=== PATIENT | male | born 1950 | race Caucasian/White ===

== ENCOUNTER 2020-04-22 10:28 | Emergency (ER) | payer MEDICARE ==
[~2020-04-22] VITALS: Ht 170.2 cm; Wt 63.6 kg
--- NOTE | 2020-04-22 11:23 | PHYS DOC ---
Past Medical History Past Medical History: No Pertinent History Past Surgical History: Other Additional Past Surgical Histo: CERVICAL Smoking Status: Never Smoker Alcohol Use: None General Adult EDM: Chief Complaint: COUGH HPI: HPI: Patient is a 70 year old male who presents with began having a sore throat, nonproductive cough, body aches, insomnia, shortness of air, headache. He states his discomfort recently worse. He states he does not think he has been around anybody else that is been sick. He states he does babysit his grandchildren but they have not been sick. He denies fever, dizziness, abdominal pain, nausea, vomiting, diarrhea, chest pain, chills, numbness or tin gling, vision changes, focal weakness. Patient currently has a aching headache that he rates at a 5 out of 10. He states he has not taken any medication for his symptoms. Patient denies any past medical history. He states he does not smoke. Review of Systems: Review of Systems: Constitutional: Denies fever or chills. [] Eyes: Denies change in visual acuity. [] HENT: Denies nasal congestion. + sore throat. [] Respiratory: cough or shortness of breath. [] Cardiovascular: Denies chest pain or edema. [] GI: Denies abdominal pain, nausea, vomiting, bloody stools or diarrhea. [] : Denies dysuria. [] Musculoskeletal: Generalized body aches. Denies back pain or joint pain. [] Integument: Denies rash. [] Neurologic: headache, denies focal weakness or sensory changes. [] Endocrine: Denies polyuria or polydipsia. [] Lymphatic: Denies swollen glands. [] Psychiatric: Denies depression or anxiety. Insomnia. [] Heart Score: Risk Factors: Risk Factors: DM, Current or recent (<one month) smoker, HTN, HLP, family history of CAD, obesity. Risk Scores: Score 0 - 3: 2.5% MACE over next 6 weeks - Discharge Home Score 4 - 6: 20.3% MACE over next 6 weeks - Admit for Clinical Observation Score 7 - 10: 72.7% MACE over next 6 weeks - Early Invasive Strategies Allergies: Allergies: Allergies Coded Allergies Type Severity Reaction Last Updated Verified No Known Drug Allergies 04/22/20 No Physical Exam: PE: Constitutional: Well developed, well nourished, no acute distress, non-toxic appearance. [] HENT: Normocephalic, atraumatic, bilateral external ears normal, oropharynx moist, no oral exudates, nose normal. Throat reddened without exudates, swelling. Uvula midline. [] Eyes: PERRLA, EOMI, conjunctiva normal, no discharge. [] Neck: Normal range of motion, no tenderness, supple, no stridor. [] Cardiovascular:Heart rate regular rhythm, no murmur [] Lungs & Thorax: Left breath sounds clear and right are significantly more dim inished to auscultation [] Abdomen: Bowel sounds normal, soft, no tenderness, no masses, no pulsatile joshua s. [] Skin: Warm, dry, no erythema, no rash. [] Back: No tenderness, no CVA tenderness. [] Extremities: No tenderness, no cyanosis, no clubbing, ROM intact, no edema. [] Neurologic: Alert and oriented X 3, normal motor function, normal sensory function, no focal deficits noted. [] Psychologic: Affect normal, judgement normal, mood normal. [] Current Patient Data: Vital Signs: Vital Signs Date Time Temp Pulse Resp B/P (MAP) Pulse Ox O2 Delivery O2 Flow Rate FiO2 04/22/20 10:42 98.7 77 16 134/82 (99) 99 Room Air 98.7 EKG: EK and read by Dr Le as Sinus Rhythm and no STEMI[] Radiology/Procedures: Radiology/Procedures: [] Impression: [facility] [address] [place], [place] [id number] IMAGING REPORT Signed PATIENT: KRISTEL SHAH ACCOUNT: [id number] : 1950 LOCATION: ER AGE: 70 SEX: M EXAM STATUS: PRE ER ORD. PHYSICIAN: MANINDER MORGAN APRN REASON: cough, soa PROCEDURE: PORTABLE CHEST 1V PORTABLE CHEST 1V INDICATION: cough, soa . COMPARISON STUDY: None. FINDINGS: Lungs: Normal lung volume. No pulmonary mass or consolidation. The tracheobronchial tree and hilar structures are normal. Pleura: No pleural effusion or pneumothorax. Heart and Mediastinum: The cardiomediastinal silhouette is normal. The great vessels of the thorax are normal. IMPRESSION: No acute cardiopulmonary process. Electronically signed by: Jaydon Evangelista MD (04/22/2020 12:00 PM) [id number] DICTATED and SIGNED BY: JAYDON EVANGELISTA MD DATE: 04/22/20 1200 Course & Med Decision Making: Course & Med Decision Making Pertinent Labs and Imaging studies reviewed. (See chart for details) COVID-19 CRITERIA: The patient was evaluated during the global COVID-19 pandemic, and that diagnosis was suspected/considered upon their initial presentation. Their evaluation, treatment and testing was consistent with current guidelines for patients who present with complaints or symptoms that may be related to COVID-19. Alert and oriented x4. Ambulatory with a steady gait. No extremity edema. Skin pink warm and dry. Vital signs within normal limits. He is afebrile. Speaks in full clear sentences. Left lung lobes are clear to auscultation all lobes and right lung lobes are significantly more diminished. Throat is reddened but there is no swelling or exudates. No trismus. Uvula midline and nonswollen. Patient is hemodynamically stable. Chest x-ray shows no acute findings. Patient will be discharged home with COVID instructions. He also be discharged home with a Medrol Dosepak, azithromycin and a pro-air inhaler. [] Dragon Disclaimer: Dragon Disclaimer: This electronic medical record was generated, in whole or in part, using a voice recognition dictation system. COVID-19 Patient Risks: Age 65 or older: Yes Sign of co-morbidity: No Exp to person + for COVID: No Exp to PUI: No Travel from affected area: No Lower respiratory symptoms: Yes Fever: No Other: Yes (body aches, sore throat) PPE Use: Full PPE with N95 mask or PAPR: Yes Departure Departure Impression: Primary Impression: Cough Additional Impressions: Sore throat Person under investigation for COVID-19 Disposition: 01 HOME, SELF-CARE Condition: STABLE Patient Instructions: Cough, Adult, Sore Throat Additional Instructions: You have been tested for or diagnosed with COVID-19. It is an infection caused by a new type of coronavirus. COVID-19 will cause cold-like or mild flu symptoms in most. It can cause more severe symptoms like problems breathing in some. There is no treatment for COVID-19. The body will clear the infection over time. Self-care will help to ease discomfort. Steps to Take: Self-Care Rest as needed. Healthy habits may help you feel better. Steps include: Choose healthy foods including fruits and vegetables. Drink water throughout the day. Get plenty of sleep each night. If you smoke, try to quit. It may ease breathing. Avoid alcohol. Keep Others Healthy The virus can spread to others. Droplets are released every time you sneeze or cough. The droplets can get into the mouth, nose, or eyes of people near you and lead to infection. To lower the chances of spreading COVID-19 to others: Stay at home until your doctor has said it is safe to leave. If you tested positive this will mean staying isolated until both of the following are true: At least 7 days have passed since the start of illness. You are free of fever for at least 72 hours without the use of medicine. During this time: - Avoid public areas, events, or transportation. Do not return to work or school until your doctor has said it is safe to do so. - Call ahead if you need to go to a medical center. Let them know you may have COVID-19. It will help them guide you where to go. They may also ask you to wear a facemask when you come to the office. - If you call for emergency medical services, let them know you may have COVID- 19. While at home: - Try to avoid close contact with others. Stay about 6 feet away. - If possible, spend most of your time in a separate room from others. - Use a face mask if you will be in close contact with others such as sharing a room or vehicle. - Have someone wipe down common surfaces in the home. Use household deputy sheriff bailiff every day on areas like doorknobs, counters, or sinks. - Cough or sneeze into a tissue. Throw the tissue away right after use. If a tissue is not available, cough or sneeze into your elbow. - Wash your hands often. Wash them after sneezing or coughing. Use soap and water and wash for at least 20 seconds. Alcohol based hand fur dry cleaner hand can be used if soap and water is not available. - Do not prepare food for others. Avoid sharing personal items like forks, spoons, or toothbrushes. - Avoid close contact with pets while you are sick. There is no evidence of the virus passing to pets. This is a safety step until more is known about this virus. Isolation can be frustrating. Social interaction can help. Keep in touch with friends and family through phone and tech options. You can still interact with others in your home, just keep a safe distance of about 6 feet. Follow-up: Your doctors office will check in with you to see if there are any changes in your health. You may be asked to keep track of symptoms to share with them. They will also let you know when you are clear to be in public again. Problems to Look Out For: Contact your doctor if your recovery is not going as you expect. Get emergency care if you have problems such as: - Trouble breathing - Nonstop chest pain or pressure - Changes in awareness, confusion, or problems waking - Lips or face have bluish color - Worsening of symptoms If you think you have an emergency, call for emergency medical services right away. As taken from [facility] Benzonatate (TESSALON PERLE) 100 Mg Capsule 1 CAP PO TID, #30 CAP Prov: MANINDER MORGAN APRN 04/22/20 Albuterol Sulfate (Proair Hfa) 8.5 Gm Hfa.aer.ad 1 PUFF INH PRN Q6HRS PRN for SHORTNESS OF BREATH, #1 INHALER Prov: MANINDER MORGAN APRN 04/22/20 Azithromycin (AZITHROMYCIN TABLET) 250 Mg Tablet 1 PKG PO UD for 5 Days, #6 TAB 0 Refills 2 the first day followed by 1 for days 2-5 Prov: MANINDER MORGAN APRN 04/22/20 Methylprednisolone (MEDROL) 4 Mg Tab.ds.pk 1 PKG PO UD, #1 PKG Prov: MANINDER MORGAN APRN 04/22/20 Justicifation of Admission Dx: Justifications for Admission: Justification of Admission Dx: N/A MANINDER MORGAN APRN Apr 22, 2020 11:22
[2020-04-22] MEDS ORDERED: IV NORMAL SALINE 1000ML BAG 1,000 ML IV ONE (11:30)
[2020-04-22] MEDS ORDERED: ACETAMINOPHEN 500 MG TABLET PO ONE (11:30)
[2020-04-22 11:33] LABS: BASO % 1 % (0-3); EOS # 0.1 x10^3/uL (0.0-0.7); EOS % 1 % (0-3); HEMATOCRIT 43.8 % (39.0-53.0); HEMOGLOBIN 14.9 g/dL (13.0-17.5); LYMPH # 0.8 x10^3/uL (1.0-4.8); LYMPH % 11 % (24-48); MEAN CORPUSCULAR HEMOGLOBIN 31 pg (25-35); MEAN CORPUSCULAR HGB CONC 34 g/dL (31-37); MEAN CORPUSCULAR VOLUME 92 fL (79-100); MONO # 0.8 x10^3/uL (0.0-1.1); MONO % 10 % (0-9); NEUT # 6.1 x10^3/uL (1.8-7.7); NEUT % 78 % (31-73); PLATELET COUNT 173 x10^3/uL (140-400); RED BLOOD COUNT 4.75 x10^6/uL (4.30-5.70); RED CELL DISTRIBUTION WIDTH 13.6 % (11.5-14.5); WHITE BLOOD COUNT 7.8 x10^3/uL (4.0-11.0)
[2020-04-22 11:44] LABS: CALCIUM 8.6 mg/dL (8.5-10.1); CREATININE 0.8 mg/dL (0.7-1.3); GFR 95.6; POTASSIUM 3.9 mmol/L (3.5-5.1)
[2020-04-22] MEDS ORDERED: methylPREDNISolone SOD SUCC PF 125 MG/2 ML VIAL. IV ONE (11:45)
[2020-04-22 11:51] LABS: ALBUMIN 3.9 g/dL (3.4-5.0); ALBUMIN/GLOBULIN RATIO 1.1 (1.0-1.7); TOTAL BILIRUBIN 0.5 mg/dL (0.2-1.0); TOTAL PROTEIN 7.6 g/dL (6.4-8.2)
--- NOTE | 2020-04-22 12:03 | RAD ---
PORTABLE CHEST 1V INDICATION: cough, soa . COMPARISON STUDY: None. FINDINGS: Lungs: Normal lung volume. No pulmonary mass or consolidation. The tracheobronchial tree and hilar structures are normal. Pleura: No pleural effusion or pneumothorax. Heart and Mediastinum: The cardiomediastinal silhouette is normal. The great vessels of the thorax are normal. IMPRESSION: No acute cardiopulmonary process. Electronically signed by: Juwan Evangelista MD (04/22/2020 12:00 PM) [id number]
[2020-04-22 13:14] LABS: BILIRUBIN,URINE NEGATIVE (NEG); CLARITY,URINE CLEAR; COLOR,URINE YELLOW; NITRITE,URINE NEGATIVE (NEG); PROTEIN,URINE NEGATIVE (NEG-TRACE); UROBILINOGEN,URINE 0.2 mg/dL (0.2 mg/dL)
[2020-04-22 13:25] LABS: BACTERIA,URINE 0 /HPF (0-FEW)
[2020-04-22] MEDS ORDERED: ALBU2.5V8 INH (13:26)
[2020-04-22] MEDS ORDERED: AZIT250T6 PO (13:26)
[2020-04-22] MEDS ORDERED: METH4TAB2 PO (13:26)
[2020-04-22] MEDS ORDERED: BENZ100C PO (13:27)
[2020-04-22 13:33] VITALS: BP 133/72
--- NOTE | 2020-04-23 11:20 | EKG ---
[facility] [address] [place] [address] Test Date: 2020-04-22 Test Time: 10:49:28 Pat Name: KRISTEL SHAH Department: Room: Gender: M Division Chair: : 1950 Requested By: MANINDER MORGAN Order Number: [id number] Reading MD: Measurements Intervals [place] Rate: 69 P: -7 IL: 194 QRS: -28 QRSD: 98 T: 40 QT: 384 QTc: 413 Interpretive Statements SINUS RHYTHM LEFTWARD AXIS OTHERWISE NORMAL ECG RI6.02 No previous ECG available for comparison
--- NOTE | 2020-04-23 15:09 | NUR ---
IP: Attempted to call COVID results. Left voicemail to return my call.
--- NOTE | 2020-04-24 09:42 | NUR ---
IP: Pt returned my call. Informed pt of negative COVID results. Pt verbalized understanding.
== END 2020-04-22 14:05 | disposition home or self-care (01) ==
LOC: ER 10:28
DX: J02.9 Acute pharyngitis, unspecified (principal); Z20.818 Contact with and (suspected) exposure to other bacterial communicable diseases; R05 Cough; R51 Headache; Z98.890 Other specified postprocedural states
CPT/HCPCS: 36415; 71045; 80053; 81001; 83880; 84484; 85025; 93005; 96361; 96374; 99285; J2930; J7030; U0003